=== PATIENT | male | born 1960 | race Caucasian/White ===

== ENCOUNTER 2018-10-19 12:59 | Emergency (ER) | payer MEDICAID ==
[~2018-10-19] VITALS: Ht 180.3 cm; Wt 93.2 kg
[2018-10-19] MEDS ORDERED: INS7030 SQ ×2 (13:45)
[2018-10-19] MEDS ORDERED: LEVO125 PO (13:45)
[2018-10-19] MEDS ORDERED: INSREG SQ (13:45)
[2018-10-19] MEDS ORDERED: ATOR20TA86 PO (13:45)
[2018-10-19 13:50] LABS: GLUCOSE,POINT OF CARE 139 MG/DL (70-110)
[2018-10-19 15:04] VITALS: BP 122/74
== END 2018-10-19 15:10 | disposition home or self-care (01) ==
LOC: EMS 13:01
DX: R76.11 Nonspecific reaction to tuberculin skin test without active tuberculosis (principal); I10 Essential (primary) hypertension; E03.9 Hypothyroidism, unspecified; E11.9 Type 2 diabetes mellitus without complications; Z79.899 Other long term (current) drug therapy

== ENCOUNTER 2018-10-30 16:39 | Emergency (ER) | payer MEDICAID ==
[~2018-10-30] VITALS: Ht 180.3 cm; Wt 94.1 kg
[~2018-10-30 16:39] MED LIST: ATOR20TA86 PO; INS7030 SQ; INSREG SQ; LEVO125 PO
[2018-10-30 16:42] VITALS: BP 139/83
[2018-10-30 16:54] LABS: GLUCOSE,POINT OF CARE 135 MG/DL (70-110)
[2018-10-30] MEDS ORDERED: LISI-662 PO (20:52)
== END 2018-10-30 17:36 | disposition left against medical advice (07) ==
LOC: EMS 16:39
DX: E16.2 Hypoglycemia, unspecified (principal); Z53.21 Procedure and treatment not carried out due to patient leaving prior to being seen by health care provider

== ENCOUNTER 2018-10-30 20:19 | Emergency (ER) | payer MEDICAID ==
[~2018-10-30] VITALS: Ht 180.3 cm; Wt 94.1 kg
[2018-10-30] MEDS ORDERED: LISI-662 PO (20:52)
[2018-10-30 20:55] LABS: GLUCOSE,POINT OF CARE 526 MG/DL (70-110)
[2018-10-30] MEDS ORDERED: SODIUM CHLORIDE 0.9% 1,000 ML IV ONE ×2 (21:15→23:30)
[2018-10-30] MEDS ORDERED: INSULIN REGULAR, HUMAN 100 UNITS/ML IVP ONE (21:15)
[2018-10-30 21:35] LABS: BASOPHILS % (AUTO) 0.6 % (0.0-2.0); EOSINOPHILS % (AUTO) 0.9 % (1.0-6.0); HEMATOCRIT 37.1 % (41-53); HEMOGLOBIN 12.8 g/dL (13.5-17.5); LYMPHOCYTES # (AUTO) 1.2 K/uL (1.0-4.8); LYMPHOCYTES % (AUTO) 27.2 % (22.0-44.0); MEAN CORPUSCULAR HEMOGLOBIN 32.4 pg (26.0-34.0); MEAN CORPUSCULAR HGB CONC 34.6 G/dL (31.0-37.0); MEAN CORPUSCULAR VOLUME 94 fL (80-100); MONOCYTES # (AUTO) 0.3 K/uL (0.1-1.0); MONOCYTES % (AUTO) 6.7 % (2.0-9.0); NEUTROPHILS # (AUTO) 2.9 K/uL (1.8-7.7); NEUTROPHILS % (AUTO) 64.6 % (40.0-70.0); PLATELET COUNT (AUTO) 200 K/uL (150-450); RED BLOOD CELL COUNT(AUTO) 3.96 MIL/uL (4.50-5.90); RED CELL DISTRIBUTION WIDTH 13.3 % (11.5-14.5)
[2018-10-30 21:43] LABS: ACETONE,BLOOD NEGATIVE (NEGATIVE)
[2018-10-30 21:51] LABS: ALANINE AMINOTRANSFERASE 64 U/L (12-78); ALBUMIN 3.7 g/dL (3.4-5.0); ALKALINE PHOSPHATASE 109 U/L (46-116); ANION GAP 8 mmol/L (8-16); ASPARTATE AMINOTRANSFERASE 58 U/L (15-37); BILIRUBIN,TOTAL 0.4 mg/dL (0.1-1.0); CALCIUM, TOTAL 8.9 mg/dL (8.8-10.5); CARBON DIOXIDE 26 mmol/L (22-29); CHLORIDE 94 mmol/L (98-107); CREATININE 1.14 mg/dL (0.60-1.30); GLOMERULAR FILTR. RATE CALC > 60 mL/min (>60); POTASSIUM 4.7 mmol/L (3.5-5.1); SODIUM SERUM 128 mmol/L (136-145); UREA NITROGEN, BLOOD 19 mg/dL (7-18)
[2018-10-30 21:53] LABS: GLUCOSE,RANDOM 527 mg/dL (70-110)
[2018-10-30 22:02] LABS: APPEARANCE,URINE CLEAR (CLEAR); BILIRUBIN,URINE NEGATIVE (NEGATIVE); GLUCOSE, URINE (UA) >=1000 mg/dL (NEGATIVE); KETONES,URINE NEGATIVE (NEGATIVE); LEUKOCYTE ESTERASE ,URINE NEGATIVE (NEGATIVE); NITRATE,URINE NEGATIVE (NEGATIVE); OCCULT BLOOD,URINE NEGATIVE (NEGATIVE); PH,URINE 6.5 (5.0-8.0); PROTEIN,URINE NEGATIVE (NEGATIVE); UROBILINOGEN,URINE 0.2 mg/dL (<=1.0)
[2018-10-30 22:12] LABS: BACTERIA,URINE None Seen /HPF (None Seen); RBC,URINE None Seen /HPF (0-2); WBC,URINE None Seen /HPF (0-5)
[2018-10-30 22:13] LABS: SQUAMOUS EPITHELIAL CELL,UR None Seen /LPF (None Seen)
[2018-10-30 22:20] LABS: GLUCOSE,POINT OF CARE 315 MG/DL (70-110)
[2018-10-30 22:54] LABS: GLUCOSE,POINT OF CARE 288 MG/DL (70-110)
[2018-10-31 00:10] LABS: GLUCOSE,POINT OF CARE 230 MG/DL (70-110)
[2018-10-31 00:39] VITALS: BP 128/68
== END 2018-10-31 00:39 | disposition home or self-care (01) ==
LOC: EMS 20:19
DX: E11.65 Type 2 diabetes mellitus with hyperglycemia (principal); I10 Essential (primary) hypertension; E03.9 Hypothyroidism, unspecified; E78.00 Pure hypercholesterolemia, unspecified; Z87.891 Personal history of nicotine dependence; Z79.4 Long term (current) use of insulin; Z79.899 Other long term (current) drug therapy
CPT/HCPCS: 36415; 80053; 81001; 82009; 82962; 85025; 93005; 96361; 96374; 99285; J1815; J7030